=== PATIENT | male | born 1955 | race African-American/Black ===

== ENCOUNTER 2019-11-29 18:02 | Inpatient (IN) ==
[2019-11-29] MEDS ORDERED: SODIUM CHLORIDE 0.9% 1000ML 1,000 ML IV ONE (18:27)
[2019-11-29 19:05] LABS: Basophils # (auto) 0.01 K/uL (0-0.2); Basophils % (auto) 0.2 %; Eosinophils # (auto) 0.12 K/uL (0-0.5); Eosinophils % (auto) 1.8 %; Hematocrit (blood only) 38.4 % (42-52); Hemoglobin 13.3 g/dL (14.0-18.0); Immature Granulocytes # (auto) 0.01 K/uL (0.00-0.02); Immature Granulocytes % (auto) 0.2 %; Lymphocytes # (auto) 1.26 K/uL (1.2-3.4); Lymphocytes % (auto) 19.3 %; Mean Corpuscular Hemoglobin 30.4 pg (25-34); Mean Corpuscular Hgb Conc 34.6 g/dL (32-36); Mean Corpuscular Volume 87.7 fL (80-100); Mean Platelet Volume 9.7 fL (7.4-10.4); Monocytes # (auto) 0.49 K/uL (0.11-0.59); Monocytes % (auto) 7.5 %; Neutrophils # (auto) 4.65 K/uL (1.4-6.5); Platelet Count 200 K/uL (130-400); RDW Standard Deviation 41.9 fL (36.4-46.3); Red Blood Count 4.38 M/uL (4.7-6.1); White Blood Count 6.54 K/uL (4.8-10.8)
[2019-11-29 19:12] LABS: BUN Creatinine Ratio 8.4 (10-20); Calcium 8.9 mg/dl (8.5-10.1); Creatinine Clr Calc Pharmacy 19.3 ml/min; Est GFR (African American) 18.8; Est GFR (Non-African American) 16.2; Potassium 4.8 mmol/L (3.5-5.1)
[2019-11-29 19:15] LABS: Albumin Globulin Ratio 1.3 (0.9-2); Bilirubin,Total 0.6 mg/dl (0.2-1); Globulin 3.2 gm/dl (2.5-4.0); Total Protein 7.2 gm/dl (6.4-8.2)
[2019-11-29 19:18] LABS: Appearance Urine Clear (Clear); Bilirubin Urine Negative (Negative); Blood Urine Negative (Negative); Color Urine Yellow; Glucose Urine UA Negative (Negative); Ketones Urine Negative (Negative); Leukocyte Esterase Urine Negative (Negative); Nitrite Urine Negative (Negative); Protein Urine Negative (Negative); Specific Gravity Urine 1.004 (1.000-1.030); Urobilinogen Urine Negative (Negative)
--- NOTE | 2019-11-29 19:52 | Ultrasound Report ---
US renal/blad retro comp CLINICAL HISTORY: 64 years-old Male presenting with Pt c/o ARF. TECHNIQUE: Real-time grayscale and limited color Doppler ultrasound imaging of the kidneys and bladde r was performed. COMPARISON: None. FINDINGS: Right kidney: Normal echogenicity with preserved corticomedullary differentiation. Normal cortical th ickness. Right kidney measures 12.7 cm. Mild to moderate pelvocaliectasis with blunting of the calyce s. This persists after micturition. No convincing evidence of calculus or mass. Left kidney: Normal echogenicity with preserved corticomedullary differentiation. Normal cortical thi ckness. Left kidney measures 11.1 cm. Moderate pelvocaliectasis with blunting of the calyces. This pe rsists after micturition. No convincing evidence of calculus or mass. Bladder: Circumferential wall thickening is suggested. Post void residual volume calculated at 565 mL . Bilateral ureteral jets present. Other: Prostatomegaly measuring 6.3 x 5.6 x 4.8 cm (calculated volume 88 mL). Prominent median lobe h ypertrophy. IMPRESSION: 1. Mild to moderate bilateral hydronephrosis. 2. Markedly abnormal post void residual volume of 565 mL. Recommend decompression with a catheter. 3. Circumferentially thickened bladder wall consistent with trabeculation indicating chronic bladder outlet obstruction secondary to prostatomegaly. 4. Prostatomegaly. ACT 112: Negative or not required by law. Electronically signed by: Zackary Knott M.D. 11/29/2019 7:50 PM
--- NOTE | 2019-11-29 21:16 | History & Physical Report ---
Date of Service November 29, 2019 Assessment & Plan (1) Urinary hesitancy: 64 yo M with PMH hypercholesterolemia (on no meds) and Elevated PSA presents with concerns of worsening Cr done on outpt lab work and urinary hesitancy found to have bilateral hydronephrosis and chronic bladder outlet obstruction 2/2 prostatomegaly on renal U/S. ARF -in the setting of bladder outlet obstruction 2/2 BPH -Renal U/S: Mild to moderate bilateral hydronephrosis. Markedly abnormal post void residual volume of 565 mL. Circumferentially thickened bladder wall consistent with trabeculation indicating chronic bladder outlet obstruction secondary to prostatomegaly. -Cr on admission 3.69. Trend daily BMP -Cont IVF NSS at 125 -Urinary catheter placed in ED. Monitor I's/O's daily -Pt started on Flomax 0.4 mg. Additional medication management deferred to Urology moving forward -defer repeat PSA at present (4.6 --> 5.6 over last 2 yrs). ?MRI prostate and biopsy -Appreciate Urology consult Hypercholesterolemia -Not on any medications currently. Stopped taking Atorvastatin 20 mg last week 2/2 UE myalgias and elevated CK 435 -repeat CK in AM to assess if any element of rhabdo Elevated BP -High of 186/91 on admission. Pt with no h/o HTN. Family hx in both parents. States normally runs in 130s at outpt visits -notes he is extremely anxious (was teary during interview) as this is his first hospitalization and has otherwise been healthy -monitor for now FEN/GI: HH Diet DVT Prophylaxis: Heparin SQ DNR/DNI Dispo: Med Surg History of Present Illness Chief Complaint: Urinary hesitancy Primary Care Provider: Shadi Villatoro MD 64 yo M with PMH hypercholesterolemia (previously on Atorvastatin 20 mg, stopped last week) and Elevated PSA presents to [facility] with concerns of urinary hesitancy. Pt follows with Dr. Lewis (Urology). Pt was recently seen by PCP on Nov 12 after returning from trip to [place] with complaints of URI sxs and was put on Doxycycline for 10 days (completed course). At this visit, blood work was done and Cr was noted to be 1.4. Afterwards, pt noted some UE myalgias and repeat blood work on Nov 26 showed a worsening Cr of 3.42 and CK 435. Pt was instructed to stop taking Atorvastatin at this time. A renal U/S was scheduled to be done tomorrow (Nov 30); however, given concern of kidney issue, pt did not want to wait an additional 24 hrs and decided to present to ED. Pt also has complaints of metallic taste in mouth during same time frame as URI sxs, and it has improved. Associated decreased appetite, fatigue and nausea. Interestingly, sxs improve when pt is lying flat. Pt's last visit with Urology was 09/15/19. PSA from 2018 was 4.6, and PSA from 2019 was 5.6, both slightly elevated for his age group. JAMAR was without nodularity at this last visit. They discussed possibly doing a prostate MRI fusion biopsy if repeat PSA was above 4.5 on next recheck. Pt otherwise denies any urinary sxs of urgency, increased frequency, dysuria, hematuria, incontinence. No fevers, chills, abd pain. Only notes some hesitancy, has to go 2-3x until he feels like bladder is totally emptied. Notes a little bit of discomfort to get stream started. Pt otherwise has no other acute concerns or complaints. UA: Unremarkable. EKG: NSR. No previous ECGs available for comparison. Renal U/S: Mild to moderate bilateral hydronephrosis. Markedly abnormal post void residual volume of 565 mL. Circumferentially thickened bladder wall consistent with trabeculation indicating chronic bladder outlet obstruction secondary to prostatomegaly. Labs: Cr 3.69 otherwise unremarkable. ER Course: NSS 1L. Urinary catheter placed- 1600 ml yellow urine in bag at time of interview. Family Hx: Father- BPH, DM, HTN. No h/o prostate ca. Mother- HTN Social: Denies any tobacco use. Social alcohol use (1 beer/month). No other illicit drug use. Surgical Hx: Unremarkable. Allergies Allergy/AdvReac Type Severity Reaction Status Date / Time No Known Allergies Allergy Unverified 11/29/19 18:54 Home Medications Home Medications Medication Instructions Recorded Confirmed Type No Known Home Medications 11/29/19 11/29/19 History Past Med/Surg History Medical History (Updated 11/29/19 @ 22:52 by Markos Mar MD) Hypercholesterolemia Family History Father Diabetes Hypertension Mother Hypertension Social History Preferred Language: Korean Planning Official Required: No Beliefs That Will Affect Care: None marital status: Current Living Situation: Spouse Other Information That Helps Us Care for You: No Feels Safe at Home: Yes Safety Concerns: Feels Safe At This Time Smoking Status: Never smoker Hx Alcohol Use: Yes Alcohol type: beer, wine and hard liquor Hx Substance Use: No Review of Systems Review of Systems: All systems reviewed & are unremarkable except as noted in HPI & below Physical Exam Constitutional: WD/WN, vitals as above Eyes: PERRL, conjunctivae normal, anicteric sclerae ENMT: external ear and nose normal, oropharynx normal Respiratory: normal respiratory effort, lungs clear to auscultation Cardiovascular: RRR, no murmur, no edema Gastrointestinal (Abdomen): normal bowel sounds, soft, nontender, no hepatosp lenomegaly Skin: no rashes, warm and dry Psychiatric: Orientation: alert and oriented x 3 Affect: + anxious affect Results & Data Vital Signs (Past 12 Hours) Vital Signs Temp Pulse Resp BP Pulse Ox 11/29/19 20:10 63 19 11/29/19 20:01 59 L 23 186/91 H 98 11/29/19 20:00 55 L 20 97 11/29/19 19:54 56 L 20 176/111 H 98 11/29/19 19:10 53 L 2 L 11/29/19 19:01 58 L 16 11/29/19 18:49 97 11/29/19 18:05 37.2 C 69 18 172/84 H 98 Laboratory Results Laboratory Results - last 24 hr 11/29/19 11/29/19 11/29/19 18:39 18:39 19:02 WBC 6.54 RBC 4.38 L Hgb 13.3 L Hct 38.4 L MCV 87.7 MCH 30.4 MCHC 34.6 RDW Std Deviation 41.9 RDW Coeff of Jannie 13.0 Plt Count 200 MPV 9.7 Immature Gran % (Auto) 0.2 Neut % (Auto) 71.0 Lymph % (Auto) 19.3 [place] % (Auto) 7.5 Eos % (Auto) 1.8 Baso % (Auto) 0.2 Immature Gran # (Auto) 0.01 Neut # (Auto) 4.65 Lymph # (Auto) 1.26 [place] # (Auto) 0.49 Eos # (Auto) 0.12 Baso # (Auto) 0.01 Sodium 140 Potassium 4.8 Chloride 105 Carbon Dioxide 30 Anion Gap 4.0 BUN 31 H Creatinine 3.69 H Est Cr Clr Drug Dosing 19.3 Est GFR ( Amer) 18.8 Est GFR (Non-Af Amer) 16.2 BUN/Creatinine Ratio 8.4 L Glucose 98 Calcium 8.9 Total Bilirubin 0.6 AST 22 ALT 27 Alkaline Phosphatase 42 L Total Creatine Kinase 232 Total Protein 7.2 Albumin 4.0 Globulin 3.2 Albumin/Globulin Ratio 1.3 Lipase 174 Urine Color Yellow Urine Appearance Clear Urine pH 6.0 Ur Specific [place] 1.004 Urine Protein Negative Urine Glucose (UA) Negative Urine Ketones Negative Urine Blood Negative Urine Nitrite Negative Urine Bilirubin Negative Urine Urobilinogen Negative Ur Leukocyte Esterase Negative Code Status & VTE Plan Code Status DNR/DNI Supervising Physician Co-Signing Physician Notes Patient seen and examined, chart reviewed, case discussed with Dr. Brewster and I agree with his assessment and plan as documented above. Briefly, patient is a 64yo healthy gentleman presenting with urinary outlet obstruction secondary to enlarged prostate, bilateral hydronephrosis and obstructive uropathy. On exam he is afebrile, bradycardic at 54bpm and hypertensive to 154/81, otherwise stable NAD, pleasant Skin - warm, dry, intact HEENT - NC/AT, PERRL, MMM, Neck supple, no JVD Heart - +S1/S2, regular, no m/r/g Lungs - CTA Abd - +BS, soft, NT/ND, Ziegler in place Ext - No edema Labs and images reviewed. Cr=3.69 from prior value of 1.4. Electrolytes otherwise favorable Assessment/Plan: 64yo male with bladder outlet obstruction from enlarged prostate, hydronephrosis and obstructive uropathy with Cr=3.69 -Ziegler placed, will maintain. Patient may need to keep Ziegler in place on discharge -Strict I/Os -Start Flomax 0.4mg po daily -Urology consultation appreciated -Patient with elevated PSA, 4.6 --> 5.6. Would benefit from prostate MRI and biopsy. This has been discussed by Urology in clinic. -IVF -Check CK -Montior BUN, Cr, electrolytes and UOP -Remainder of plan as above Resident Activity Tracking Resident Involvement: Resident Care Provided Care Provided: Adult [facility]
--- NOTE | 2019-11-29 22:52 | Emergency Department Note ---
Entered by Mandie Zimmer acting as a scribe for History of Present Illness General Chief complaint: Abnormal Labs/Diagnostic Testing Stated complaint: NAUSEA, VOMITING Time Seen by Provider: 11/29/19 18:17 Source: patient History of Present Illness Onset (ago): day(s) 3 Location: head (general) Pain Consistency: + other (episode) Quality: + other (abnormal labs) Associated symptoms: + loss of appetite and + other (positive elevated creatinine; positive elevated BUN; positive persistent cold symptoms; positive metallic taste in mouth; negative leg swelling; negative abdominal pain); no rash The patient is a 64 year old male who presents to the Emergency Room with complaints of an episode of abnormal labs that began 3 days prior to arrival. The patient states that he saw Dr. Og on 11/12/19, 17 days ago, for cold symptoms. The patient states that at this time his blood work showed an elevated creatinine and BUN. The patient states that at this time he was given Doxycycline, and states that he finished this yesterday. The patient states that he went back to the doctor on 11/26/19, 3 days ago, for a metallic taste in his mouth, no appetite, and persistent cold symptoms. The patient states that at this time his blood work showed that his creatinine had more than doubled from his previous blood work, from 1.4 to 3.4. The patient states that at this time his doctor scheduled him for an ultrasound of his kidneys for tomorrow. He states that at this time his kinase was high and he was told to stop his statin. The patient denies rash, leg swelling, and abdominal pain. Home Medications Home Medications Medication Instructions Recorded Confirmed Type No Known Home Medications 11/29/19 11/29/19 History Allergies Allergy/AdvReac Type Severity Reaction Status Date / Time No Known Allergies Allergy Unverified 11/29/19 18:54 Past Med/Surg History Medical History (Updated 11/29/19 @ 22:52 by Markos Mar MD) Hypercholesterolemia Family History Father Diabetes Hypertension Mother Hypertension Social History Preferred Language: Slovak marital status: Feels Safe at Home: Yes Smoking Status: Never smoker Hx Alcohol Use: Yes Review of Systems See HPI for pertinent positives & negatives. and A total of 10 systems reviewed and were otherwise negative Physical Exam Vital Signs Vital Signs - 24 hr 11/29/19 18:05 11/29/19 18:49 11/29/19 19:01 Temperature 37.2 C Temperature Source Oral Pulse Rate 69 58 L Pulse Rate from SpO2 Sensor Respiratory Rate 18 16 Respiratory Effort / Characteristics Non-Labored Respiratory Depth Normal Blood Pressure 172/84 H Blood Pressure Mean 113 Pulse Oximetry 98 97 Oxygen Delivery Method Room Air Room Air Sepsis Recent Fever Within 48 Hours No Sepsis Action Taken by Nursing No Action Required 11/29/19 19:10 11/29/19 19:54 11/29/19 20:00 Temperature Temperature Source Pulse Rate 53 L 56 L 55 L Pulse Rate from SpO2 Sensor 57 L 55 L Respiratory Rate 2 L 20 20 Respiratory Effort / Characteristics Respiratory Depth Blood Pressure 176/111 H Blood Pressure Mean 147 Pulse Oximetry 98 97 Oxygen Delivery Method Sepsis Recent Fever Within 48 Hours Sepsis Action Taken by Nursing 11/29/19 20:01 11/29/19 20:10 11/29/19 20:20 Temperature Temperature Source Pulse Rate 59 L 63 62 Pulse Rate from SpO2 Sensor 59 L Respiratory Rate 23 19 17 Respiratory Effort / Characteristics Respiratory Depth Blood Pressure 186/91 H Blood Pressure Mean 131 Pulse Oximetry 98 Oxygen Delivery Method Sepsis Recent Fever Within 48 Hours Sepsis Action Taken by Nursing 11/29/19 20:30 11/29/19 20:40 11/29/19 20:50 Temperature Temperature Source Pulse Rate 59 L 60 59 L Pulse Rate from SpO2 Sensor Respiratory Rate 23 22 22 Respiratory Effort / Characteristics Respiratory Depth Blood Pressure Blood Pressure Mean Pulse Oximetry Oxygen Delivery Method Sepsis Recent Fever Within 48 Hours Sepsis Action Taken by Nursing 11/29/19 21:00 11/29/19 21:10 11/29/19 21:20 Temperature Temperature Source Pulse Rate 57 L 64 58 L Pulse Rate from SpO2 Sensor Respiratory Rate 19 21 21 Respiratory Effort / Characteristics Respiratory Depth Blood Pressure Blood Pressure Mean Pulse Oximetry Oxygen Delivery Method Sepsis Recent Fever Within 48 Hours Sepsis Action Taken by Nursing 11/29/19 21:26 11/29/19 21:30 11/29/19 21:40 Temperature Temperature Source Pulse Rate 59 L 55 L 54 L Pulse Rate from SpO2 Sensor Respiratory Rate 18 18 15 Respiratory Effort / Characteristics Respiratory Depth Blood Pressure 181/86 H Blood Pressure Mean 124 Pulse Oximetry 96 Oxygen Delivery Method Sepsis Recent Fever Within 48 Hours Sepsis Action Taken by Nursing 11/29/19 21:50 11/29/19 22:00 11/29/19 22:10 Temperature Temperature Source Pulse Rate 55 L 56 L 58 L Pulse Rate from SpO2 Sensor Respiratory Rate 19 16 18 Respiratory Effort / Characteristics Respiratory Depth Blood Pressure 189/85 H Blood Pressure Mean 130 Pulse Oximetry 96 Oxygen Delivery Method Sepsis Recent Fever Within 48 Hours Sepsis Action Taken by Nursing 11/29/19 22:20 Temperature Temperature Source Pulse Rate 60 Pulse Rate from SpO2 Sensor Respiratory Rate 21 Respiratory Effort / Characteristics Respiratory Depth Blood Pressure Blood Pressure Mean Pulse Oximetry Oxygen Delivery Method Sepsis Recent Fever Within 48 Hours Sepsis Action Taken by Nursing GENERAL: Awake, alert, well-appearing, in no acute distress HENT: Normocephalic, atraumatic. Oropharynx unremarkable. EYES: Normal conjunctiva. Sclera non-icteric. NECK: Supple. No nuchal rigidity. FROM. No JVD. RESPIRATORY: Clear to auscultation. CARDIAC: Regular rate, normal rhythm. Extremities warm and well perfused. Pulses equal. ABDOMEN: Soft, non-distended. No tenderness to palpation. No rebound or guarding. No masses. RECTAL: Deferred. MUSCULOSKELETAL: Chest examination reveals no tenderness. The back is symmetrical on inspection without obvious abnormality. There is no CVA tenderness to palpation. No joint edema. LOWER EXTREMITIES: Calves are equal size bilaterally and non-tender. No edema. No discoloration. NEURO: Normal sensorium. No sensory or motor deficits noted. SKIN: No rash or jaundice noted. Course Course 1818: Past medical records reviewed. The patient was evaluated in room C4. A complete history and physical exam was performed. 1955: I discussed the case with Dr. [facility] Hospitalist who accepts the patient for further evaluation. 2013: I updated the patient and his family on all results. They are in agreement with the treatment plan. Administered Medications Discontinued Medications Sodium Chloride (Nss 1000ml) 1,000 mls @ 999 mls/hr IV .Q1H1M ONE Stop: 11/29/19 19:27 Last Infusion: 11/29/19 21:24 Dose: 0 mls/hr Documented by: [id number] Infusion: 11/29/19 20:57 Dose: 999 mls/hr Documented by: [id number] Infusion: 11/29/19 19:03 Dose: 0 mls/hr Documented by: [id number] Admin: 11/29/19 18:38 Dose: 999 mls/hr Documented by: [id number] Medical Decision Making Differential Diagnosis Differential Diagnosis includes but is not limited to dehydration, stroke, anemia, hypoglycemia, hyponatremia, hypernatremia, urinary tract infection, pneumonia, bronchitis, sepsis, gastroenteritis, additional abdominal pathology, metabolic abnormalities and infections. Medical Records Attestation: I reviewed the patient's medical records. Home Medications Current Medication List: was personally reviewed by me Laboratory Data Attestation: I reviewed the patient's lab results. Result diagrams: 11/29/19 18:39 11/29/19 18:39 Lab Results 11/29/19 11/29/19 11/29/19 Range/Units 18:39 18:39 19:02 WBC 6.54 (4.8-10.8) K/uL RBC 4.38 L (4.7-6.1) M/uL Hgb 13.3 L (14.0-18.0) g/dL Hct 38.4 L (42-52) % MCV 87.7 (80-100) fL MCH 30.4 (25-34) pg MCHC 34.6 (32-36) g/dL RDW Std Deviation 41.9 (36.4-46.3) fL RDW Coeff of Jannie 13.0 (11.5-14.5) % Plt Count 200 (130-400) K/uL MPV 9.7 (7.4-10.4) fL Immature Gran % (Auto) 0.2 % Neut % (Auto) 71.0 % Lymph % (Auto) 19.3 % [place] % (Auto) 7.5 % Eos % (Auto) 1.8 % Baso % (Auto) 0.2 % Immature Gran # (Auto) 0.01 (0.00-0.02) K/uL Neut # (Auto) 4.65 (1.4-6.5) K/uL Lymph # (Auto) 1.26 (1.2-3.4) K/uL [place] # (Auto) 0.49 (0.11-0.59) K/uL Eos # (Auto) 0.12 (0-0.5) K/uL Baso # (Auto) 0.01 (0-0.2) K/uL Sodium 140 (136-145) mmol/L Potassium 4.8 (3.5-5.1) mmol/L Chloride 105 (98-107) mmol/L Carbon Dioxide 30 (21-32) mmol/L Anion Gap 4.0 (3-11) BUN 31 H (7-18) mg/dl Creatinine 3.69 H (0.6-1.4) mg/dl Est Cr Clr Drug Dosing 19.3 ml/min Est GFR ( Amer) 18.8 Est GFR (Non-Af Amer) 16.2 BUN/Creatinine Ratio 8.4 L (10-20) Glucose 98 (70-99) mg/dl Calcium 8.9 (8.5-10.1) mg/dl Total Bilirubin 0.6 (0.2-1) mg/dl AST 22 (15-37) U/L ALT 27 (12-78) U/L Alkaline Phosphatase 42 L (45-117) U/L Total Creatine Kinase 232 (39-308) U/L Total Protein 7.2 (6.4-8.2) gm/dl Albumin 4.0 (3.4-5.0) gm/dl Globulin 3.2 (2.5-4.0) gm/dl Albumin/Globulin Ratio 1.3 (0.9-2) Lipase 174 (73-393) U/L Urine Color Yellow Urine Appearance Clear (Clear) Urine pH 6.0 (4.5-7.5) Ur Specific [place] 1.004 (1.000-1.030) Urine Protein Negative (Negative) Urine Glucose (UA) Negative (Negative) Urine Ketones Negative (Negative) Urine Blood Negative (Negative) Urine Nitrite Negative (Negative) Urine Bilirubin Negative (Negative) Urine Urobilinogen Negative (Negative) Ur Leukocyte Esterase Negative (Negative) Imaging Data Radiologist's Impression: Radiology results as stated below per my review and the radiologist's interpretation: US renal/blad retro comp CLINICAL HISTORY: 64 years-old Male presenting with Pt c/o ARF. TECHNIQUE: Real-time grayscale and limited color Doppler ultrasound imaging of the kidneys and bladder was performed. COMPARISON: None. FINDINGS: Right kidney: Normal echogenicity with preserved corticomedullary differentiation. Normal cortical thickness. Right kidney measures 12.7 cm. Mild to moderate pelvocaliectasis with blunting of the calyces. This persists after micturition. No convincing evidence of calculus or mass. Left kidney: Normal echogenicity with preserved corticomedullary diffe rentiation. Normal cortical thickness. Left kidney measures 11.1 cm. Moderate pelvocaliectasis with blunting of the calyces. This persists after micturition. No convincing evidence of calculus or mass. Bladder: Circumferential wall thickening is suggested. Post void residual volume calculated at 565 mL. Bilateral ureteral jets present. Other: Prostatomegaly measuring 6.3 x 5.6 x 4.8 cm (calculated volume 88 mL). Prominent median lobe hypertrophy. IMPRESSION: 1. Mild to moderate bilateral hydronephrosis. 2. Markedly abnormal post void residual volume of 565 mL. Recommend decompression with a catheter. 3. Circumferentially thickened bladder wall consistent with trabeculation indicating chronic bladder outlet obstruction secondary to prostatomegaly. 4. Prostatomegaly. ACT 112: Negative or not required by law. Electronically signed by: Zackary Knott M.D. 11/29/2019 7:50 PM ECG Data Attestation: I personally reviewed and interpreted this ECG as follows: Indication: + weakness Rate (beats per minute): 60 Rhythm: + normal sinus ECG Intervals/blocks: + Normal QT-c (422) ECG ST segments: no ST depression and no ST elevation Blood Pressure Blood Pressure Findings: Elevated blood pressure Blood Pressure Disposition: further management by hospitalist ROMAIN Langford This is a 64-year-old male who presents emergency department over concerns about his creatinine. It has doubled within the past week. Using shared medical decision making with the patient and family the decision was made to send the patient for an ultrasound of his kidneys and bladder. This is concerning for bilateral hydronephrosis. Because of this a Ziegler catheter was placed to drain the patient's bladder. His creatinine is elevated here however his potassium is stable. Based on this I did discuss the case with the hospitalist service who did agree to admit the patient. Patient and family were in agreement with the treatment plan. Patient was given a normal saline bolus here in the emergency department. Impression & Plan Acute urinary retention, Acute renal failure Discharge Plan Visit Data Chief Complaint: Abnormal Labs/Diagnostic Testing Stated Complaint: NAUSEA, VOMITING ED Provider: Markos Mar Discharge Problem: Acute urinary retention, Acute renal failure Forms Stand Alone Forms: My [facility] Prescriptions Prescriptions: No Action No Known Home Medications RF: 0 Discharge Problem: Acute renal failure Qualifiers: Acute renal failure type: unspecified Qualified Code(s): N17.9 - Acute kidney failure, unspecified The scribe's documentation has been prepared under my direction and personally reviewed by me in its entirety. I confirm that the note above accurately reflects all work, treatment, procedures, and medical decision making performed by me.
[2019-11-29 23:22] LABS: Influenza A virus by PCR Neg for Influ A (Neg); Influenza B virus by PCR Neg for Influ B (Neg)
[2019-11-29] MEDS ORDERED: ACETAMINOPHEN 325 MG TAB PO PRN (23:34)
[2019-11-29] MEDS ORDERED: ALUMINUM/MAGNESIUM SUSP 30 ML UDC PO PRN (23:34)
[2019-11-29] MEDS ORDERED: ONDANSETRON INJ 2 MG/ML 2 ML VIAL IV PRN (23:34)
--- NOTE | 2019-11-30 00:13 | Billing Data ---
Date of Service November 30, 2019 Coding Level of Care Code 89933 Initial Inpt Care Lvl 3
[2019-11-30] MEDS: SODIUM CHLORIDE 0.9% 1000ML 1,000 ML IV SCH ×3 (00:18→16:15)
[2019-11-30 05:42] LABS: Basophils # (auto) 0.01 K/uL (0-0.2); Basophils % (auto) 0.2 %; Eosinophils # (auto) 0.06 K/uL (0-0.5); Eosinophils % (auto) 1.3 %; Hematocrit (blood only) 36.4 % (42-52); Hemoglobin 12.2 g/dL (14.0-18.0); Immature Granulocytes # (auto) 0.01 K/uL (0.00-0.02); Immature Granulocytes % (auto) 0.2 %; Lymphocytes # (auto) 0.81 K/uL (1.2-3.4); Lymphocytes % (auto) 17.3 %; Mean Corpuscular Hemoglobin 29.5 pg (25-34); Mean Corpuscular Hgb Conc 33.5 g/dL (32-36); Mean Corpuscular Volume 87.9 fL (80-100); Mean Platelet Volume 9.5 fL (7.4-10.4); Monocytes # (auto) 0.33 K/uL (0.11-0.59); Monocytes % (auto) 7.1 %; Neutrophils # (auto) 3.46 K/uL (1.4-6.5); Neutrophils % (auto) 73.9 %; Platelet Count 170 K/uL (130-400); RDW Coefficient of Variation 13.1 % (11.5-14.5); RDW Standard Deviation 42.2 fL (36.4-46.3); Red Blood Count 4.14 M/uL (4.7-6.1); White Blood Count 4.68 K/uL (4.8-10.8)
[2019-11-30 06:15] LABS: BUN Creatinine Ratio 8.5 (10-20); Calcium 8.6 mg/dl (8.5-10.1); Creatinine Clr Calc Pharmacy 24.7 ml/min; Est GFR (African American) 25.4; Est GFR (Non-African American) 21.9
[2019-11-30] MEDS: TAMSULOSIN HCL 0.4 MG CAP PO SCH (08:17)
[2019-11-30] MEDS: HEPARIN SOD 5,000 UNIT/0.5 ML VIAL SQ SCH ×2 (08:19→20:17)
--- NOTE | 2019-11-30 11:13 | Hospitalist Progress Note ---
Date of Service November 30, 2019 Assessment & Plan (1) Acute renal failure: -in the setting of bladder outlet obstruction 2/2 BPH -Renal U/S: Mild to moderate bilateral hydronephrosis. Markedly abnormal post void residual volume of 565 mL. Circumferentially thickened bladder wall consistent with trabeculation indicating chronic bladder outlet obstruction secondary to prostatomegaly. -Cr on admission 3.69, now trending down following Ziegler catheter placement -Cont IVF NSS at 125 -Continue Flomax 0.4 mg started at admission. Additional medication management deferred to Urology moving forward -defer repeat PSA at present (4.6 --> 5.6 over last 2 yrs), further workup per urology -Appreciate Urology consult (2) Acute urinary retention: As above (3) Elevated PSA: As above (4) Hypercholesterolemia: -Not on any medications currently. Stopped taking Atorvastatin 20 mg last week 2/2 UE myalgias and elevated CK 435 -CK today 159 (5) Hypertension: Systolic blood pressures 150s-180s - follow up with provider outpatient. (6) DVT prophylaxis: Heparin subq Subjective Mr. Delcid is accompanied by his and daughter who is a physician with [facility]. He reports feeling well. He did have complaints of an unpleasant taste in his mouth over the last week or so that is now improving. ROS Constitutional: no chills, aches, sweats or fever Respiratory: no sob,cough, sputum, or wheezing Cardiac: no chest pain, palpitations, edema, orthopnea or lightheadedness GI: no abdominal pain, nausea, vomiting, diarrhea or constipation : no dysuria or hesitancy Extremities: no joint pain or weakness Skin: no rash All other systems reviewed and negative Physical Exam Physical Exam: General: no distress Eyes: normal inspection, PERLL Respiratory: chest non tender, clear to auscultation, normal breath sounds, no respiratory distress, no accessory muscle use Cardiac: regular rate and rhythm, no rub or gallop, no murmur, no edema, no jvd GI/: active bowel sounds, no abd pain or tenderness, soft, non distended Extremities: normal range of motion, normal strength, non tender Neuro/Psych: alert and oriented x 3, normal mood and affect Skin: normal color, dry Results & Data Vital Signs (Past 12 Hours) Vital Signs Temp Pulse Resp BP Pulse Ox 11/30/19 07:00 36.7 C 49 L 16 151/75 H 97 11/29/19 23:47 37.5 C 77 20 180/75 H 95 PG Care Time/CCT Total # of Minutes Spent Total Time Spent with Patient: Total time spent is greater than 50% in coordination of care (as documented) at patient's floor/unit and/or counseling patient: (1) Acute renal failure Acute renal failure type: unspecified Qualified Code(s): N17.9 - Acute kidney failure, unspecified
--- NOTE | 2019-11-30 11:46 | Urology Consultation ---
Date of Consultation November 30, 2019 Assessment & Plan (1) Acute renal failure: (2) Acute urinary retention: 64 yo M admitted for acute renal failure and bilateral hydronephrosis secondary to bladder outlet obstruction. - Creatinine trending down with max drainage - Maintain Ziegler for 2 weeks - Continue Tamsulosin - Start Finasteride - Plan for outpatient f/u with our service for TOV, cystoscopy, discussion of MRI fusion biopsy - Will continue to follow while inpatient History of Present Illness Attending Physician: Sudhir Wallace MD History of Present Illness 64 yo M admitted with acute renal failure and bilateral hydronephrosis in the setting of bladder outlet obstruction. Pt admitted via [facility] on 11/29/2018. Pt reports several days of malaise and metallic taste in mouth. He had outpatient lab work showing elevated creatinine and CK, which prompted him to go to the ED. Creatinine on admission was 3.69, CK was 232. He reports having recently finished course of Doxycycline for URI. Reports that his PCP stopped Simvastatin secondary to CK elevation. Patient is following with [facility], last visit in September 2019. PSA was 4.6 in 2018, 5.6 in 2019. MRI fusion biopsy was discussed and recommended if next PSA was greater than 4.5. 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 Patient has a copy of recent lab work which shows PSA was 7.9 on 11/12/19. Chart review: Cr - 2.88 UA - unremarkable Renal US showed mild to moderate bilateral hydronephrosis, markedly abnormal post void residual volume of 565 mL, circumferentially thickened bladder wall consistent with trabeculation indicating chronic bladder outlet obstruction secondary to prostatomegaly. Prostatomegaly. Ziegler catheter placed for elevated PVR Pt sitting up at side of bed on his laptop. at bedside. No abdominal pain or flank pain. Ziegler catheter intact draining clear yellow urine. Tolerating catheter. Denies urgency, dysuria or hematuria. No f/c/n/v. Denies bothersome NÉSTOR TS at baseline. No feeling of incomplete emptying. States he triple voids at times. 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 Ziegler catheter intact, draining clear yellow urine No pedal edema Results & Data Vital Signs (Past 12 Hours) Vital Signs Temp Pulse Resp BP Pulse Ox 11/30/19 07:00 36.7 C 49 L 16 151/75 H 97 11/29/19 23:47 37.5 C 77 20 180/75 H 95 PG Care Time/CCT Total # of Minutes Spent Total Time Spent with Patient: Total time spent is greater than 50% in coordination of care (as documented) at patient's floor/unit and/or counseling patient: (1) Acute renal failure Acute renal failure type: unspecified Qualified Code(s): N17.9 - Acute kidney failure, unspecified
[2019-11-30] MEDS ORDERED: CALCIUM CARBONATE 500 MG CHEWABLE TAB PO PRN (14:29)
[2019-11-30] MEDS ORDERED: CALCIUM CARBONATE 500 MG CHEWABLE TAB ONE (14:34)
--- NOTE | 2019-11-30 21:45 | Electrocardiogram Report ---
Test Reason : Blood Pressure : / mmHG Vent. Rate : 060 BPM Atrial Rate : 060 BPM P-R Int : 146 ms QRS Dur : 088 ms QT Int : 422 ms P-R-T Axes : -07 -13 078 degrees QTc Int : 422 ms Normal sinus rhythm Normal ECG No previous ECGs available Confirmed by Cheo Sahni ([id number]) on 11/30/2019 9:45:02 PM Referred By: REFERRED SELF Confirmed By:Cheo Sahni
[2019-12-01] MEDS: SODIUM CHLORIDE 0.9% 1000ML 1,000 ML IV SCH ×2 (00:43→07:58)
[2019-12-01 07:26] LABS: BUN Creatinine Ratio 8.3 (10-20); Calcium 8.2 mg/dl (8.5-10.1); Creatinine Clr Calc Pharmacy 38.5 ml/min; Est GFR (African American) 43.3; Est GFR (Non-African American) 37.4; Potassium 3.8 mmol/L (3.5-5.1)
[2019-12-01] MEDS: HEPARIN SOD 5,000 UNIT/0.5 ML VIAL SQ SCH (08:00)
[2019-12-01] MEDS: TAMSULOSIN HCL 0.4 MG CAP PO SCH (08:00)
[2019-12-01] MEDS ORDERED: FINASTERIDE 5 MG TAB PO SCH (09:00)
--- NOTE | 2019-12-01 13:04 | Discharge Summary ---
Date of Service December 01, 2019 Admission HPI Per Admitting Provider 64 yo M with PMH hypercholesterolemia (previously on Atorvastatin 20 mg, stopped last week) and Elevated PSA presents to [facility] with concerns of urinary hesitancy. Pt follows with Dr. Lewis (Urology). Pt was recently seen by PCP on Nov 12 after returning from trip to [facility] with complaints of URI sxs and was put on Doxycycline for 10 days (completed course). At this visit, blood work was done and Cr was noted to be 1.4. Afterwards, pt noted some UE myalgias and repeat blood work on Nov 26 showed a worsening Cr of 3.42 and CK 435. Pt was instructed to stop taking Atorvastatin at this time. A renal U/S was scheduled to be done tomorrow (Nov 30); however, given concern of kidney issue, pt did not want to wait an additional 24 hrs and decided to present to ED. Pt also has complaints of metallic taste in mouth during same time frame as URI sxs, and it has improved. Associated decreased appetite, fatigue and nausea. Interestingly, sxs improve when pt is lying flat. Pt's last visit with Urology was 09/15/19. PSA from 2018 was 4.6, and PSA from 2019 was 5.6, both slightly elevated for his age group. JAMAR was without nodularity at this last visit. They discussed possibly doing a prostate MRI fusion biopsy if repeat PSA was above 4.5 on next recheck. Pt otherwise denies any urinary sxs of urgency, increased frequency, dysuria, hematuria, incontinence. No fevers, chills, abd pain. Only notes some hesitancy, has to go 2-3x until he feels like bladder is totally emptied. Notes a little bit of discomfort to get stream started. Pt otherwise has no other acute concerns or complaints. UA: Unremarkable. EKG: NSR. No previous ECGs available for comparison. Renal U/S: Mild to moderate bilateral hydronephrosis. Markedly abnormal post void residual volume of 565 mL. Circumferentially thickened bladder wall consistent with trabeculation indicating chronic bladder outlet obstruction secondary to prostatomegaly. Labs: Cr 3.69 otherwise unremarkable. ER Course: NSS 1L. Urinary catheter placed- 1600 ml yellow urine in bag at time of interview. Family Hx: Father- BPH, DM, HTN. No h/o prostate ca. Mother- HTN Social: Denies any tobacco use. Social alcohol use (1 beer/month). No other illicit drug use. Surgical Hx: Unremarkable. Principal Diagnosis Acute Renal Failure Discharge Exam Constitutional WD/WN, vitals as above Respiratory normal respiratory effort, lungs clear to auscultation Cardiovascular RRR, no murmur, no edema Gastrointestinal (Abdomen) Inspection/Auscultation: abdomen normal to inspection and normal bowel sounds; abdomen not distended Percussion/Palpation: abdomen soft; abdomen nontender Musculoskeletal no cyanosis or clubbing, extremities motor strength 5/5 Skin no rashes, warm and dry Neurologic moves all extremities and awake Psychiatric A+Ox3, euthymic affect Discharge Data Allergies Allergy/AdvReac Type Severity Reaction Status Date / Time No Known Allergies Allergy Unverified 11/29/19 18:54 Consultations 11/29/19 19:23 ED Decision to Admit Stat 11/29/19 23:34 Consult Urology Routine Ordered Studies 11/29/19 18:27 US renal/blad retro comp Stat Hospital Course (1) Acute renal failure: -in the setting of bladder outlet obstruction 2/2 BPH -Renal U/S: Mild to moderate bilateral hydronephrosis. Markedly abnormal post void residual volume of 565 mL. Circumferentially thickened bladder wall consistent with trabeculation indicating chronic bladder outlet obstruction secondary to prostatomegaly. -Cr on admission 3.69, now trending down following Ziegler catheter placement -Continue Flomax 0.4 and finasteride initiated this admission. -defer repeat PSA at present (4.6 --> 5.6 over last 2 yrs), further workup per urology -Appreciate Urology consult - will see uro outpatient in 2 weeks for a TOV and discuss further workup at that time. (2) Acute urinary retention: As above (3) Elevated PSA: As above (4) Hypercholesterolemia: -Not on any medications currently. Stopped taking Atorvastatin 20 mg last week 2/2 UE myalgias and elevated CK 435 -CK elevation resolved - fu with pcp on whether to resume this medication (5) Hypertension: Systolic blood pressures 150s-180s - follow up with provider outpatient. (6) DVT prophylaxis: Heparin subq Total Time Total Time Spent Total Time Spent (In Minutes): greater than 30 minutes Discharge Plan Discharge Items Patient Disposition: Home - Self-Care Reason For Visit: ARF Discharge Diagnosis: Acute renal failure, urinary obstruction Activity: Resume your previous activity Activity Comment: gradually as tolerated Non-emergency contact: Primary Care Provider and Urologist Call non-emergency contact if: you have any medication questions, your symptoms worsen, your pain is not controlled and you have a fever Follow-up/Referrals: [facility] [place] [place] [facility] [Provider Group] (Please, follow up at [facility]. *The office is located at [address] in [place]. The office phone number is [phone].) Shadi Villatoro MD [Primary Care Provider] - 12/08/19 3:30 pm (Please, follow up at Dr. Shadi Villatoro' office with his associate, Dr. Servando Brewster, on SaturdayDecember 08 at 3:30 pm. *If you need to change this appointment, call their office at [phone].) Diet: Heart Healthy Addtl Attending Provider Instructions: (1) Acute renal failure: Secondary to bladder obstruction from benign prostatic hypertrophy. Your creatinine on admission was 3.69 and has been trending down, today it is 1.85. -Continue tamsulosin (Flomax) and finasteride (Proscar) - Continue Ziegler catheter for 2 weeks. You will follow up with Urology for a trial of void at that time and discuss further workup. (2) Hypercholesterolemia: Your CK (creatinine kinase) has normalized. Hold your atorvastatin until you follow up with your primary care provider. (3) Hypertension: Your blood pressure was a bit elevated in the hospital, the top number (systolic blood pressure) ranging 150s-180s. I recommend that you purchase a blood pressure cuff for home. Take you blood pressure daily at different times of the day after sitting quietly for 5-15 minutes. Keep a log of your values to take to your next appointment with your primary care provider. If you have any signs or symptoms of hypertensive urgency you should report to the emergency department. These include chest pain, chest pressure, palpitations, shortness of breath, visual changes, nose bleeds, or slurred speech. Please follow up with your primary care provider within a week. You should discuss follow up lab work with them at that time as they may want to check your kidney function again to ensure resolution of kidney injury Pending Studies at Discharge: No Stand-Alone Forms: My [facility] [address], Smoking Cessation Medications and DC Order Prescriptions: New tamsulosin 0.4 mg Capsule 0.4 mg PO QAM Qty: 30 RF: 0 finasteride [Proscar] 5 mg Tablet 5 mg PO QAM Qty: 30 RF: 0 No Action No Known Home Medications RF: 0 Discharge Orders: Discharge Order (Routine); Ordered 12/01/19 Ordered By: Mary Montoya/Other Patient Handouts: Catheter Indwelling Urinary Dc, Leg Bag Care Dc, Finasteride Oral tablet [Benign Prostatic Hyperplasia], Tamsulosin Hydrochloride Oral capsule Admission Data Admit Date/Time: 11/29/19 22:42 Attending Provider: Sudhir Wallace Admit Provider: Tereso Brewster Primary Care Provider: Shadi Villatoro Other Providers: Flex Wallace I. ; Sudhir Wallace Other Interventions: Discharge Summary Assessment (RN) Last Done: 12/01/19 13:16 Supervising Physician Co-Signing Physician Notes I supervised Mary Greenwood NP on this patient's care. I examined the patient today independently of her. I discussed the plan of care with her with the plan being as written in her note except for any following changes/exceptions: None. Very pleasant. In no distress now that the catheter is draining urine. Will follow up with urology for voiding trial and further care of bladder retention.
--- NOTE | 2019-12-01 13:22 | Urology Progress Note ---
Date of Service December 01, 2019 Assessment & Plan (1) Acute renal failure: (2) Acute urinary retention: 64 yo M admitted for acute renal failure, bilateral hydronephrosis, and acute urinary retention secondary to bladder outlet obstruction. - Maintain Ziegler catheter, arrange TOV outpatient - Continue Tamsulosin and Finasteride - Will arrange follow-up outpatient with our service Thank you for allowing us to participate in the acute care of Mr. Delcid. Please reconsult us with additional questions, concerns or changes in patient status. Subjective Pt awake, sitting up in bed. at bedside. No issues overnight. Offers no complaints. Denies dysuria, urgency, or abdominal discomfort. Tolerating Ziegler catheter. Ziegler intact draining clear yellow urine. No f/c/n/v. Creatinine improved to 1.85 today. Review of Systems Review of Systems: All systems reviewed & are unremarkable except as noted in HPI & below Physical Exam Physical Exam: NAD AOx3, pleasant and cooperative Normal respiratory effort Abd soft, nontender, nondistended Ziegler catheter intact draining clear yellow urine No pedal edema Results & Data Vital Signs (Past 12 Hours) Vital Signs Temp Pulse Resp BP Pulse Ox 12/01/19 07:37 36.8 C 53 L 20 155/71 H 98 12/01/19 03:50 36.7 C 54 L 20 163/75 H 98 PG Care Time/CCT Total # of Minutes Spent Total Time Spent with Patient: Total time spent is greater than 50% in coordination of care (as documented) at patient's floor/unit and/or counseling patient: (1) Acute renal failure Acute renal failure type: unspecified Qualified Code(s): N17.9 - Acute kidney failure, unspecified
== END 2019-12-01 15:57 | disposition home or self-care (01) | DRG 684 ==
LOC: ED 18:02 → 4W 22:42 → SUATTDRO 22:42 → 4W 23:04